=== PATIENT | male | born 1985 | race Caucasian/White ===

== ENCOUNTER 2017-07-21 13:41 | Day surgery (SDC) | payer BC ==
[2017-07-21] MEDS ORDERED: Sodium Chloride 0.9% 1,000 ML IV SCH (14:15)
[2017-07-21] MEDS ORDERED: fentaNYL 100 MCG/2 ML SDV ONE (14:37)
[2017-07-21] MEDS ORDERED: Propofol 200 MG/20 ML SDV ONE ×2 (14:37→14:47)
[2017-07-21] MEDS ORDERED: Midazolam 1 MG/ML 2 ML SDV ONE ×2 (14:37→14:48)
[2017-07-21 16:16] VITALS: BP 110/73
--- NOTE | 2017-07-24 09:17 | OR ---
DATE OF PROCEDURE: 07/21/2017 PROCEDURE: EGD. FINDINGS: Food retained along with a ring noted at the distal esophagus. COMPLICATIONS: None. BATCHING OPERATOR: None. ANESTHESIA: MAC. RISK: Risks, benefits, alternatives, and limitations including but not limited to infection, bleeding, and perforation/esophageal tear along with aspiration risk and other risks were explained to the patient and they wished to proceed. PROCEDURE IN DETAIL: The patient was placed in left lateral decubitus position. The EGD scope was introduced and advanced atraumatically to the distal esophagus. The patient was noted to have a large amount of solid retained foods. This was able to be moved into the esophagus. This had caught on what looked like a Schatzki's type ring. This had torn during the process, but no evidence of enterotomy or tear. The stomach was normal. There was no active bleeding noted at the end of the procedure. Remainder of the esophagus was normal. The patient will have a chest x-ray to followup postoperatively and repeat the EGD in one week. Dc Machado MD /[id number]
== END 2017-07-21 16:20 | disposition home or self-care (01) ==
LOC: JP.SDS 13:41
PROVIDERS: ATTEND Surgery
DX: T18.128A Food in esophagus causing other injury, initial encounter (principal); K22.2 Esophageal obstruction
CPT/HCPCS: 43235; 71020; J2250; J2704; J3010; J7040

== ENCOUNTER 2017-07-27 06:27 | Day surgery (SDC) | payer BC ==
[2017-07-27] MEDS ORDERED: Sodium Chloride 0.9% 1,000 ML IV SCH (07:15)
[2017-07-27] MEDS ORDERED: Propofol 200 MG/20 ML SDV ONE (07:30)
[2017-07-27] MEDS ORDERED: fentaNYL 100 MCG/2 ML SDV ONE (07:31)
[2017-07-27] MEDS ORDERED: Midazolam 1 MG/ML 2 ML SDV ONE (07:31)
[2017-07-27 09:05] VITALS: BP 108/69
--- NOTE | 2017-07-27 11:37 | OR ---
DATE OF PROCEDURE: 07/27/2017 PROCEDURE: Esophagogastroduodenoscopy with dilation. Balloon used 36-Czech, dilation #1. PATHOLOGY: Biopsies of the GE junction. FINDINGS: Significant improvement in narrowing of the GE junction. INDICATIONS: A 31-year-old male, who had foreign food material stuck in his esophagus. He returns today for biopsy and subsequent dilation. Risks, benefits, alternatives, limitations including, but not limited to infection, bleeding, and perforation were explained to the patient and he wished to proceed. We also discussed aspiration. PROCEDURE IN DETAIL: The patient was placed in left lateral decubitus position. The EGD scope was introduced and advanced atraumatically to the second part of the duodenum. In the stomach itself, there were no gastric ulcerations, no gastritis, no bleeding, and no abnormalities. At the GE junction, the inflammation had improved significantly. The previous ring type narrowing had been broken during the previous EGD and looked excellent today. This was biopsied x6 in all 4 quadrants using standard cold biopsy forceps. After biopsy, a 36-Czech balloon was introduced and dilated to stage III. After this, there was no significant bleeding noted. The remainder of the esophagus was inspected without abnormality. The patient tolerated the procedure well. Dc Machado MD /[id number]
== END 2017-07-27 09:05 | disposition home or self-care (01) ==
LOC: JP.SDS 06:27
PROVIDERS: ATTEND Surgery
DX: T18.128A Food in esophagus causing other injury, initial encounter (principal)
CPT/HCPCS: 43233; J2250; J2704; J3010; J7040; 88305